=== PATIENT | male | born 1945 | race Caucasian/White ===

== ENCOUNTER 2018-08-27 06:02 | Day surgery (SDC) | payer MEDICARE ==
[~2018-08-27] VITALS: Ht 175.3 cm; Wt 89.0 kg
[~2018-08-27 06:02] MED LIST: AMLO5 PO; ASPI81CH PO; ATOR10 PO; BENA20 PO; BENHYD1012; CARV6.25 PO; CENTRUM SILVER1 EAC2 PO; CHOL10002; CLON.1 PO; Emla Cream30 GM TP; FINA5 PO; FOLBIC RF TABL1 EACH PO; FOLI1 PO; FURO20 PO; HYDR10 PO; Klor-Con M1010 MEQ PO; MAGOXI400 PO; NALT50 PO; NITR.4SL SL; OMEP20ER PO; Soliris300 MG/30 IV; TAMS.4ER PO; THIA100 PO
--- NOTE | 2018-08-27 10:05 | NUR ---
PT RETURNED TO RECOVERY ROOM ON BED. LEFT GROIN SITE SOFT NON-TENDER WITH NO HEMATOMA AND NO PULSATILE BLEEDING. DRESSING INTACT; TRACK OOZING NOTED. PT DENIES CP; PT DENIES SHARP BACK PAIN; PT C/O CHRONIC LOWER BACK SORENESS. CALL LIGHT IN REACH.
[2018-08-27] MEDS ORDERED: CLOP75 PO (10:37)
--- NOTE | 2018-08-27 13:00 | NUR ---
10 CC REMOVED FROM SMALLS CATHETER BALLOON. SMALLS CATHETER REMOVED; PT TOLERATED WELL.
--- NOTE | 2018-08-27 13:30 | NUR ---
DISCHARGE INSTRUCTIONS REVIEWED ALL QUESTIONS ANSWERED. LEFT GROIN SITE STILL SOFT NON-TENDER WITH NO HEMATOMA AND NO PULSATILE BLEEDING. INTACT DRESSING.
--- NOTE | 2018-08-27 13:43 | NUR ---
PT AMBULATED TO BR TO VOID. NO CHANGES TO LEFT GROIN SITE.
--- NOTE | 2018-08-27 14:01 | NUR ---
20 IV DISCONTINUED FROM LEFT AC WITH INTACT CANNULA. PT ESCORTED OUT VIA WHEELCHAIR ESCORT.
== END 2018-08-27 14:00 | disposition home or self-care (01) ==
LOC: MHTC 06:02
DX: I70.211 Atherosclerosis of native arteries of extremities with intermittent claudication, right leg (principal); G62.9 Polyneuropathy, unspecified; E78.5 Hyperlipidemia, unspecified; I10 Essential (primary) hypertension; Z86.718 Personal history of other venous thrombosis and embolism; Z87.891 Personal history of nicotine dependence; Z82.49 Family history of ischemic heart disease and other diseases of the circulatory system; Z79.82 Long term (current) use of aspirin; Z79.899 Other long term (current) drug therapy
CPT/HCPCS: 37225; 37228; 75625; 75716; 75774; 85347; 99152; 99153; C1714; C1725; C1760; C1769; C1884; C1887; C1894; C2623; J1644; J2250; J3010; J7030; Q9967

== ENCOUNTER → 2018-08-31 | Outpatient (CLI) | payer MEDICARE ==
[~2018-08-31] MED LIST changes: +CLOP75 PO
== END | disposition home or self-care (01) ==
LOC: LAB EV 10:07 → LAB SHORT 10:07
DX: N39.0 Urinary tract infection, site not specified (principal)
CPT/HCPCS: 87077; 87086; 87186

== ENCOUNTER → 2018-12-02 | Outpatient (CLI) | payer MEDICARE | END | disposition home or self-care (01) | LOC: PLD 09:55 → LAB SHORT 09:55 | DX: L57.0 Actinic keratosis (principal) | CPT/HCPCS: 88305 ==

== ENCOUNTER 2019-03-02 20:09 | Emergency (ER) | payer MEDICARE ==
[~2019-03-02] VITALS: Ht 185.4 cm; Wt 108.9 kg
[2019-03-02 20:40] LABS: BASOPHILS ABSOLUTE AUTO 0.02 K/mm3 (0.00-0.23); BASOPHILS PERCENT AUTO 1 % (0-2); EOSINOPHILS ABSOLUTE AUTO 0.11 K/mm3 (0.00-0.68); EOSINOPHILS PERCENT AUTO 3 % (0-6); Hematocrit 34.9 % (37.0-53.0); Hemoglobin 11.5 g/dL (13.5-17.5); IMMATURE GRAN ABSOLUTE AUTO 0.02 K/mm3 (0.00-0.10); IMMATURE GRAN PERCENT AUTO 1 % (0-1); LYMPHOCYTES ABSOLUTE AUTO 0.82 K/mm3 (0.84-5.20); LYMPHOCYTES PERCENT AUTO 22 % (21-46); MONOCYTES ABSOLUTE AUTO 0.31 K/mm3 (0.16-1.47); MONOCYTES PERCENT AUTO 8 % (4-13); Mean Corpuscular HGB 31.7 pg (26.0-34.0); Mean Corpuscular Volume 96 fL (80-100); Mean Platelet Volume 9.5 fL (9.1-12.4); NEUTROPHILS ABSOLUTE AUTO 2.52 K/mm3 (1.96-9.15); NEUTROPHILS PERCENT AUTO 66 % (41-73); Platelet Count 84 K/mm3 (150-400); RDW Coefficient Variation 12.8 % (11.7-14.2); RDW Standard Deviation 45.3 fL (35.1-46.3); Red Blood Cell Count 3.63 M/mm3 (4.30-5.90)
[2019-03-02 20:58] LABS: Alanine Aminotransfer (ALT/SGP 25 U/L (12-78); Albumin, Blood 4.1 g/dL (3.4-5.0); Albumin/Globulin Ratio 1.4 (0.8-1.8); Alk Phos 70 U/L (50-136); Anion Gap 6 mmol/L (6-16); Aspartate Aminotrans (AST/SGOT 13 U/L (12-37); Bilirubin, Total 0.5 mg/dL (0.1-1.0); Blood Urea Nitrogen 35 mg/dL (8-24); Bun/Creatinine Ratio 27.6 (12.0-20.0); CO2, Blood 23 mmol/L (21-32); Calcium, Blood 8.5 mg/dL (8.5-10.1); Chloride, Blood 117 mmol/L (98-108); Creatinine, Blood 1.27 mg/dL (0.60-1.20); Globulin, Blood 2.9 g/dL (2.2-4.0); Glomerular Filtration Rate 59 (60-); Glucose, Blood 101 mg/dL (70-99); Potassium, Blood 4.8 mmol/L (3.5-5.5); Sodium, Blood 146 mmol/L (136-145); Troponin I <0.015 ng/mL (0.000-0.040)
[2019-04-22] MEDS ORDERED: BACL10 (14:13)
== END 2019-03-03 00:56 | disposition home or self-care (01) ==
LOC: ER 20:09
PROVIDERS: Emergency Medicine
DX: R07.89 Other chest pain (principal); I10 Essential (primary) hypertension; I73.9 Peripheral vascular disease, unspecified; G62.9 Polyneuropathy, unspecified; Z87.891 Personal history of nicotine dependence; Z88.0 Allergy status to penicillin; Z88.8 Allergy status to other drugs, medicaments and biological substances; Z79.82 Long term (current) use of aspirin; Z79.02 Long term (current) use of antithrombotics/antiplatelets; Z79.899 Other long term (current) drug therapy
CPT/HCPCS: 36415; 71046; 80053; 83690; 84484; 85025; 93005; 93010; 96374; 99285-25

== ENCOUNTER 2019-04-23 07:04 | Day surgery (SDC) | payer MEDICARE ==
[~2019-04-23] VITALS: Ht 177.8 cm; Wt 89.0 kg
[~2019-04-23 07:04] MED LIST changes: +BACL10
--- NOTE | 2019-04-23 11:54 | NUR ---
TR BAND DEFLATED 7 CC AIR OUT, REMAINS ON WITH MINIMAL OOZING NOTED UNDERNEATH TR BAND. VSS. PT REPORTS 3/10 ACHEY PAIN TO RIGHT WRIST NEAR EDGE OF TR BAND. BRUSING REMAINS ON RFA, 15 MINUTES OF PREVIOUS ICE PLACED ON SITE ON RFA. WILL CONTINUE TO MONITOR. PT VERBALIZED UNDERSTANDING OF D/C INSTRUCTIONS. PAPERWORK SIGNED AND PLACED INTO [facility].
--- NOTE | 2019-04-23 14:24 | NUR ---
TR BAND REMOVED FROM RIGHT WRIST. BLAZE PAD AND CLEAR TEGADERM USED FOR MINIMAL OOZING FROM SITE. LIGHT PRESSURE DRESSING APPLIED TO RIGHT WRIST, ARM BOARD ON FOR SUPPORT. PT HAS AMBULATED TO RESTROOM WITH STEADY GAIT. GOT SELF DRESSED FROM THE WAIST UP. AWAITING ARRIVAL OF HIS FOR A RIDE HOME.
--- NOTE | 2019-04-23 14:45 | NUR ---
PT ARRIVES TO GIVE PT A RIDE HOME. IV REMOVED FROM RAC WITH CATH INTACT, PRESSURE DRESSING APPLIED. RIGHT WRIST REMAINS STABLE, ARM BOARD ON. PT ABLE TO AMBULATE OUT OF DEPARTMENT WITH STEADY GAIT. DENIES NEED FOR W/C OUT TO PRIVATE VEHICLE. NADN AT TIME OF DISPO.
== END 2019-04-23 14:45 | disposition home or self-care (01) ==
LOC: MHTC 07:04
PROC: B215YZZ Fluoroscopy of Left Heart using Other Contrast (ICD-10-PCS; principal; 2019-04-23)
PROC: B211YZZ Fluoroscopy of Multiple Coronary Arteries using Other Contrast (ICD-10-PCS; principal; 2019-04-23)
PROC: 4A023N7 Measurement of Cardiac Sampling and Pressure, Left Heart, Percutaneous Approach (ICD-10-PCS; principal; 2019-04-23)
DX: T82.855A Stenosis of coronary artery stent, initial encounter (principal); I25.10 Atherosclerotic heart disease of native coronary artery without angina pectoris; E78.00 Pure hypercholesterolemia, unspecified; I10 Essential (primary) hypertension; K21.9 Gastro-esophageal reflux disease without esophagitis; E78.5 Hyperlipidemia, unspecified; D59.3 Hemolytic-uremic syndrome; Y83.1 Surgical operation with implant of artificial internal device as the cause of abnormal reaction of the patient, or of later complication, without mention of misadventure at the time of the procedure; Z82.49 Family history of ischemic heart disease and other diseases of the circulatory system; Z88.0 Allergy status to penicillin; Z88.8 Allergy status to other drugs, medicaments and biological substances; Z79.899 Other long term (current) drug therapy; Z79.82 Long term (current) use of aspirin; Z79.02 Long term (current) use of antithrombotics/antiplatelets; Z87.891 Personal history of nicotine dependence; Z98.890 Other specified postprocedural states; Z86.79 Personal history of other diseases of the circulatory system
CPT/HCPCS: 76937; 85347; 93005; 93010; 93458; 99152; 99153; C1769; C1894; J1644; J2250; J3010; J7030; Q9967

== ENCOUNTER → 2020-12-07 | Outpatient (CLI) | payer MEDICARE | END | disposition home or self-care (01) | LOC: LAB 10:54 → LAB SHORT 10:54 | DX: D48.5 Neoplasm of uncertain behavior of skin (principal) | CPT/HCPCS: 88305 ==

== ENCOUNTER 2021-07-29 11:31 | Day surgery (SDC) | payer MEDICARE ==
[2021-07-29 10:46] LABS: BASOPHILS ABSOLUTE AUTO 0.02 K/mm3 (0.00-0.23); BASOPHILS PERCENT AUTO 1 % (0-2); EOSINOPHILS ABSOLUTE AUTO 0.04 K/mm3 (0.00-0.68); EOSINOPHILS PERCENT AUTO 1 % (0-6); Hematocrit 19.9 % (37.0-53.0); IMMATURE GRAN ABSOLUTE AUTO 0.03 K/mm3 (0.00-0.10); IMMATURE GRAN PERCENT AUTO 1 % (0-1); LYMPHOCYTES ABSOLUTE AUTO 0.56 K/mm3 (0.84-5.20); LYMPHOCYTES PERCENT AUTO 18 % (21-46); MONOCYTES ABSOLUTE AUTO 0.28 K/mm3 (0.16-1.47); MONOCYTES PERCENT AUTO 9 % (4-13); Mean Corpuscular HGB 25.1 pg (26.0-34.0); Mean Corpuscular HGB Conc 28.1 g/dL (31.5-36.5); Mean Corpuscular Volume 89 fL (80-100); Mean Platelet Volume 9.7 fL (9.1-12.4); NEUTROPHILS ABSOLUTE AUTO 2.14 K/mm3 (1.96-9.15); NEUTROPHILS PERCENT AUTO 70 % (41-73); Platelet Count 102 K/mm3 (150-400); RDW Coefficient Variation 14.6 % (11.7-14.2); RDW Standard Deviation 46.3 fL (35.1-46.3); Red Blood Cell Count 2.23 M/mm3 (4.30-5.90); White Blood Cell Count 3.07 K/mm3 (4.00-11.30)
[2021-07-29 10:53] LABS: Hemoglobin 5.6 g/dL (13.5-17.5)
[2021-07-29 11:10] LABS: Bun/Creatinine Ratio 21.1 (12.0-20.0); Calcium, Blood 8.6 mg/dL (8.5-10.1); Creatinine, Blood 1.42 mg/dL (0.60-1.20); Percent Saturation 76.6 % (20.0-50.0); Potassium, Blood 4.5 mmol/L (3.5-5.5)
== END 2021-07-29 16:54 | disposition home or self-care (01) ==
LOC: ATC 11:31 → EDSTATUS 11:32 → ATC 16:54
PROVIDERS: Internal Medicine
DX: D62 Acute posthemorrhagic anemia (principal); D50.9 Iron deficiency anemia, unspecified; K31.819 Angiodysplasia of stomach and duodenum without bleeding; I12.9 Hypertensive chronic kidney disease with stage 1 through stage 4 chronic kidney disease, or unspecified chronic kidney disease; N18.9 Chronic kidney disease, unspecified; I25.10 Atherosclerotic heart disease of native coronary artery without angina pectoris; Z87.891 Personal history of nicotine dependence; Z88.0 Allergy status to penicillin
CPT/HCPCS: 36415; 80048; 82728; 83010; 83540; 83550; 85025; 86850; 86900; 86901; 86923; J1642; J7050; P9016

== ENCOUNTER → 2021-07-31 | Outpatient (CLI) | payer MEDICARE ==
[2021-08-01 13:09] LABS: Stool Occult Blood Guaiac 1 Pos (Neg); Stool Occult Blood Guaiac 2 Pos (Neg)
== END | disposition home or self-care (01) ==
LOC: LAB SHORT 08:40
PROVIDERS: Internal Medicine
DX: D62 Acute posthemorrhagic anemia (principal)
CPT/HCPCS: 82272

== ENCOUNTER → 2021-12-15 | Outpatient (CLI) | payer MEDICARE | END | disposition home or self-care (01) | LOC: LAB SHORT 11:41 | DX: L82.1 Other seborrheic keratosis (principal) | CPT/HCPCS: 88305 ==

== ENCOUNTER 2022-09-21 08:57 | Emergency (ER) | payer MEDICARE ==
[~2022-09-21] VITALS: Ht 177.8 cm; Wt 86.2 kg
== END 2022-09-21 12:48 | disposition home or self-care (01) ==
LOC: ER 08:57
DX: I70.298 Other atherosclerosis of native arteries of extremities, other extremity (principal); R20.2 Paresthesia of skin; M25.512 Pain in left shoulder; R07.89 Other chest pain; I10 Essential (primary) hypertension; G62.9 Polyneuropathy, unspecified; I49.3 Ventricular premature depolarization; Z88.8 Allergy status to other drugs, medicaments and biological substances; Z79.82 Long term (current) use of aspirin; Z79.899 Other long term (current) drug therapy; Z79.02 Long term (current) use of antithrombotics/antiplatelets; Z87.891 Personal history of nicotine dependence; Z88.0 Allergy status to penicillin; I70.8 Atherosclerosis of other arteries
CPT/HCPCS: 71275; 74175; 93005; 93010; 99284-25; J7030; Q9967

== ENCOUNTER 2022-11-10 03:22 | Day surgery (SDC) | payer MEDICARE ==
[2022-11-08 08:02] LABS: BASOPHILS ABSOLUTE AUTO 0.03 K/mm3 (0.00-0.23); BASOPHILS PERCENT AUTO 1 % (0-2); EOSINOPHILS ABSOLUTE AUTO 0.07 K/mm3 (0.00-0.68); EOSINOPHILS PERCENT AUTO 2 % (0-6); Hematocrit 23.7 % (37.0-53.0); Hemoglobin 7.3 g/dL (13.5-17.5); IMMATURE GRAN ABSOLUTE AUTO 0.03 K/mm3 (0.00-0.10); IMMATURE GRAN PERCENT AUTO 1 % (0-1); LYMPHOCYTES PERCENT AUTO 13 % (21-46); MONOCYTES ABSOLUTE AUTO 0.28 K/mm3 (0.16-1.47); MONOCYTES PERCENT AUTO 7 % (4-13); Mean Corpuscular HGB 30.9 pg (26.0-34.0); Mean Corpuscular HGB Conc 30.8 g/dL (31.5-36.5); Mean Corpuscular Volume 100 fL (80-100); Mean Platelet Volume 9.3 fL (9.1-12.4); NEUTROPHILS ABSOLUTE AUTO 3.03 K/mm3 (1.96-9.15); NEUTROPHILS PERCENT AUTO 77 % (41-73); Platelet Count 114 K/mm3 (150-400); RDW Coefficient Variation 17.3 % (11.7-14.2); RDW Standard Deviation 62.6 fL (35.1-46.3); Red Blood Cell Count 2.36 M/mm3 (4.30-5.90); White Blood Cell Count 3.94 K/mm3 (4.00-11.30)
[2022-11-08 08:40] LABS: Albumin, Blood 3.5 g/dL (3.4-5.0); Albumin/Globulin Ratio 1.3 (0.8-1.8); Bilirubin, Total 0.7 mg/dL (0.1-1.0); Calcium, Blood 8.7 mg/dL (8.5-10.1); Creatinine, Blood 1.5 mg/dL (0.60-1.20); Globulin, Blood 2.7 g/dL (2.2-4.0); Potassium, Blood 4.9 mmol/L (3.5-5.5); Total Protein, Blood 6.2 g/dL (6.4-8.2)
[2022-11-08 10:58] LABS: Percent Saturation 10.6 % (20.0-50.0)
[~2022-11-10 03:22] MED LIST changes: -BENA20 PO; -CHOL10002; +LOTENSIN HCT 21 EAC3 PO; +THERA-D2000 UNIT PO
[2022-11-10 07:53] VITALS: BP 111/44
[2022-11-10 08:09] VITALS: BP 105/40
[2022-11-10 09:10] VITALS: BP 142/55
== END 2022-11-10 09:40 | disposition home or self-care (01) ==
LOC: ATC 03:22 → EDSTATUS 07:30 → ATC 07:30
PROVIDERS: Internal Medicine Hematology & Oncology; Registered Nurse Oncology
DX: D58.9 Hereditary hemolytic anemia, unspecified (principal); K74.60 Unspecified cirrhosis of liver
CPT/HCPCS: 36415; 36430; 80053; 82728; 82977; 83010; 83540; 83550; 83615; 85025; 86850; 86900; 86901; 86923; J1642; J7050; P9016

== ENCOUNTER 2022-11-12 08:39 | Observation (INO) | payer MEDICARE ==
[2022-11-12] VITALS (7 sets, daily range): BP systolic 120–178; BP diastolic 58–74
[~2022-11-12] VITALS: Ht 177.8 cm; Wt 87.6 kg
[2022-11-12 09:57] LABS: BASOPHILS ABSOLUTE AUTO 0.02 K/mm3 (0.00-0.23); BASOPHILS PERCENT AUTO 1 % (0-2); EOSINOPHILS ABSOLUTE AUTO 0.06 K/mm3 (0.00-0.68); EOSINOPHILS PERCENT AUTO 2 % (0-6); Hematocrit 22.8 % (37.0-53.0); Hemoglobin 7.2 g/dL (13.5-17.5); IMMATURE GRAN ABSOLUTE AUTO 0.01 K/mm3 (0.00-0.10); IMMATURE GRAN PERCENT AUTO 0 % (0-1); LYMPHOCYTES ABSOLUTE AUTO 0.57 K/mm3 (0.84-5.20); LYMPHOCYTES PERCENT AUTO 19 % (21-46); MONOCYTES ABSOLUTE AUTO 0.33 K/mm3 (0.16-1.47); MONOCYTES PERCENT AUTO 11 % (4-13); Mean Corpuscular HGB 31.2 pg (26.0-34.0); Mean Corpuscular HGB Conc 31.6 g/dL (31.5-36.5); Mean Corpuscular Volume 99 fL (80-100); Mean Platelet Volume 9.8 fL (9.1-12.4); NEUTROPHILS ABSOLUTE AUTO 2.07 K/mm3 (1.96-9.15); NEUTROPHILS PERCENT AUTO 68 % (41-73); Platelet Count 93 K/mm3 (150-400); RDW Standard Deviation 58.2 fL (35.1-46.3); Red Blood Cell Count 2.31 M/mm3 (4.30-5.90); White Blood Cell Count 3.06 K/mm3 (4.00-11.30)
[2022-11-12] MEDS ORDERED: B-121000 MC3 PO (09:58)
[2022-11-12] MEDS ORDERED: ISOSORBIDE MONO60 MG PO (10:04)
[2022-11-12] MEDS ORDERED: PANT40 PO (10:05)
[2022-11-12] MEDS ORDERED: RANO500T PO (10:05)
[2022-11-12 10:17] LABS: Albumin, Blood 3.1 g/dL (3.4-5.0); Albumin/Globulin Ratio 1.3 (0.8-1.8); Bilirubin, Total 0.7 mg/dL (0.1-1.0); Bun/Creatinine Ratio 30.9 (12.0-20.0); Calcium, Blood 8.2 mg/dL (8.5-10.1); Creatinine, Blood 1.39 mg/dL (0.60-1.20); Globulin, Blood 2.3 g/dL (2.2-4.0); Potassium, Blood 4.9 mmol/L (3.5-5.5); Total Protein, Blood 5.4 g/dL (6.4-8.2)
[2022-11-12 10:28] LABS: International Normalized Ratio 1.1; Prothrombin Time Results 11.5 Sec (9.7-11.5)
[2022-11-12] MEDS ORDERED: [UNRECOGNIZED DRUG - OTHER] IV (16:22)
--- NOTE | 2022-11-12 18:50 | NUR ---
ADMIT NOTE Received report from ED, pt to room via andre bansal transfered to bed. Pt oriented to room and call light. Pt alert, oriented x4; calm and cooperative with care. Pt up in lynnandre in room. Pt denies pain, chest pain/pressure, sob, nausea, and dizziness. Pt reports baseline numbness to ble. Pt reports having 7-10 days of black tarry stool, abd firms and distended, nontender, + BT x4 quad. Dr Robbins at bedside this evening, new order for clear liquid diet, then NPO tomorrow for EGD in the afternoon/evening. Spo2 >90% on ra, breathing even and unlabored, ls clear. Tele sinus, bp elevated but stable. Clarified orders for [address]BC [address] Dr Tinajero, orders to give now. Pt receiving blood at this time, appears to be tolerating at this time. Vss. Will continue to monitor. Discussed code status and POLST with patient and spouse in depth. Pt has poslt in charge expressing DNR and full treatment, pt requesting FULL CODE and FULL treatment. Assisted patient and spouse with completing new POLST, will have DR foley tomorrow.
[2022-11-12 22:37] LABS: Hematocrit 26.6 % (37.0-53.0); Hemoglobin 8.5 g/dL (13.5-17.5)
[2022-11-13] VITALS (18 sets, daily range): BP systolic 85–186; BP diastolic 53–87
[2022-11-13 04:34] LABS: Hematocrit 25.5 % (37.0-53.0); Hemoglobin 8.1 g/dL (13.5-17.5)
[2022-11-13 04:53] LABS: Bun/Creatinine Ratio 22.6 (12.0-20.0); Creatinine, Blood 1.24 mg/dL (0.60-1.20); Magnesium, Blood 2.4 mg/dL (1.6-2.4); Potassium, Blood 4.6 mmol/L (3.5-5.5)
--- NOTE | 2022-11-13 09:11 | NUR ---
AM NOTE PT IS ALERT AND ORIENTATED TO PERSON, PLACE, TIME, AND SITUATION. DENIES CHEST PAIN, SHORTNESS OF BREATH, DIZZINESS, NAUSEA, OR ABDOMINAL PAIN. PT MEDICATED PER EMAR. DISCUSSED EGD LATER THIS AFTERNOON. PT DENIES HAVING ANY BOWEL MOVEMENTS THIS ADMISSION. PT HAS NO FURTHER QUESTIONS AT THIS TIME, DENIES ANY NEEDS, WILL CONTINUE TO MONITOR AND ASSESS PT.
[2022-11-13 10:50] LABS: Hematocrit 25.7 % (37.0-53.0); Hemoglobin 8.2 g/dL (13.5-17.5)
--- NOTE | 2022-11-13 15:01 | NUR ---
LEFT THE UNIT TO ENDO, 1450.
--- NOTE | 2022-11-13 15:01 | NUR ---
MEDIPORT TO RIGHT CHEST WALL ACCESSED AND PIV #20 TO RIGHT AC. LEFT AC IV NOT PATENT AND DISCONTINUED.
--- NOTE | 2022-11-13 15:04 | NUR ---
INTO SDS FOR EGD. NPO STATUS CONFIRMED. HISTORY REVIEWED. LUNGS CLEAR. PT SPOUSE AT BEDSIDE. DNR REVOKED FOR PROCEDURE.
--- NOTE | 2022-11-13 17:49 | NUR ---
D/C NOTE PT ATE SNACK AND DINNER WITHOUT COMPLICATIONS. PT REMOVED FROM TELEMTRY, PIV REMOVED, AND MEDIPORT DEACCESSED WITH HEPARIN, PER EMAR. VITAL SIGNS ARE STABLE. PT AND FAMILY EDUCATED ABOUT FOLLOW-UP REFERALS, UPPER GI BLEEDS, EMERGENT INSTANCES THAT WOULD REQUIRE RETURNING TO THE EMERGENCY DEPARTMENT. PT AND FAMILY HAD NO FURTHER QUESTIONS OR CONCERNS. PT TRANSPORTED TO [facility] VIA WHEELCAHIR.
--- NOTE | 2022-11-13 18:03 | NUR ---
I have reviewed the nursing students documentation and am in agreement.
--- NOTE | 2022-11-14 06:51 | NUR ---
11/14/22 0651 Ramirez Zheng HISTORY, CHART, MEDICATIONS AND ALLERGIES REVIEWED BEFORE START OF PROCEDURE. PATIENT CONFIRMS NPO STATUS AND AGREES WITH SCHEDULED PROCEDURE. 3-LEAD EKG REVIEWED WITH PHYSICIAN PRIOR TO START OF PROCEDURE. MONITOR INTACT WITH CONTINUOUS PULSE OXIMETRY,CAPNOGRAPHY, 3-LEAD EKG, INTERMITTENT BP. SUPPLEMENTAL O2 TO BE TITRATED THROUGHOUT PROCEDURE TO MAINTAIN O2 SATURATION ABOVE 90%. PATIENT DETERMINED TO BE ASA APPROPRIATE FOR PROPOFOL SEDATION PRIOR TO START OF PROCEDURE BY DR. PLATT.
[2022-11-22] MEDS ORDERED: BENAZEPRIL HCL40 M1 PO (13:40)
[2022-11-22] MEDS ORDERED: CLOP75 PO (13:44)
[2022-11-22] MEDS ORDERED: OMEP20ER PO (13:45)
[2022-11-22] MEDS ORDERED: RANO500T PO (14:04)
== END 2022-11-13 17:50 | disposition home or self-care (01) ==
LOC: ER 08:39 → PCU 08:40
PROVIDERS: Student in an Organized Health Care Education/Training Program; ADMIT Internal Medicine
DX: K31.819 Angiodysplasia of stomach and duodenum without bleeding (principal); K92.1 Melena; K20.90 Esophagitis, unspecified without bleeding; K70.30 Alcoholic cirrhosis of liver without ascites; D62 Acute posthemorrhagic anemia; D59.39 Other hemolytic-uremic syndrome; I10 Essential (primary) hypertension; I25.10 Atherosclerotic heart disease of native coronary artery without angina pectoris; E78.5 Hyperlipidemia, unspecified; Z87.891 Personal history of nicotine dependence; Z95.5 Presence of coronary angioplasty implant and graft; Z88.0 Allergy status to penicillin; Z88.8 Allergy status to other drugs, medicaments and biological substances; Z79.82 Long term (current) use of aspirin; Z79.899 Other long term (current) drug therapy
CPT/HCPCS: 36430; 80048; 80053; 82272; 83735; 85014; 85018; 85025; 85610; 85730; 86850; 86900; 86901; 86923; 88305; 96365; 96375; 96376; 99285-25; A9270; C9113; G0378; J0696; J1642; J2354; J2405; J2704; J7030; J7050; J7120; P9016

== ENCOUNTER 2022-12-06 08:40 | Day surgery (SDC) | payer MEDICARE ==
[~2022-12-06] VITALS: Ht 175.3 cm; Wt 83.4 kg
[2022-12-06] VITALS (17 sets, daily range): BP systolic 121–169; BP diastolic 56–78
[~2022-12-06 08:40] MED LIST changes: +B-121000 MC3 PO; +BENAZEPRIL HCL40 M1 PO; +ISOSORBIDE MONO60 MG PO; +PANT40 PO; +RANO500T PO; +[UNRECOGNIZED DRUG - OTHER] IV
--- NOTE | 2022-12-06 10:39 | NUR ---
0920 TO STEP, CONFIRMED SURGERY AND SURGEON. PRE OP TEACHING DONE, AT BEDSIDE MEDS AND ALLERGIES EVIEWED
--- NOTE | 2022-12-06 10:49 | NUR ---
NASAL SWABS X 3 GIVEN TO PATIENT
--- NOTE | 2022-12-06 12:38 | NUR ---
12/06/22 Kevin8 Violetta Kaur PATIENT ARRIVED TO OR WITH A MEDIPORT IN PLACE IN TACT IN THE RIGHT CHEST. MEDIPORT NOT ACCESSED FOR CASE.
--- NOTE | 2022-12-06 15:00 | NUR ---
ARRIVAL PATIENT ARRIVED TO ROOM 214 VIA BED. VSS ON RA, LUNGS COARSE T/O. BULKY DRESSINGS TO RIGHT HIP, C/D/I. POLAR PACK IN PLACE. TITUS HOSE & SCD'S IN PLACE. PATIENT HAS FULL SENSATION TO BLE, WIGGLES ALL TOES APPROPRIATELY, STRONG PEDAL PULSES TO BOTH FEET. ORIENTED TO ROOM & CALL LIGHT, IN REACH.
--- NOTE | 2022-12-06 19:33 | NUR ---
SHIFT SUMMARY NO ACUTE CHANGES SINCE ARRIVAL TO UNIT. POD O R LIDA. DRESSING TO RIGHT HIP C/D/I, POLAR PACK IN PLACE. PAIN MANAGED WELL PER EMAR. PATIENT UP TO BATHROOM & CHAIR. EATING & DRINKING WELL. HAS NOT VOIDED POST-OP, BLADDER SCAN AT APPROX 1845 SHOWED ABOUT 92 ML. CALL LIGHT IN REACH, REPORT GIVEN TO NOC RN'S LESLIE.
[2022-12-07 04:04] VITALS: BP 173/54
--- NOTE | 2022-12-07 05:09 | NUR ---
MEDS PT REQUESTED HOME MEDICATIONS PER HIS HOME ROUTINE FOR BPH AND BP. PT MEDICATED PER REQUEST.
[2022-12-07 05:14] LABS: BASOPHILS PERCENT AUTO 0 % (0-2); EOSINOPHILS PERCENT AUTO 0 % (0-6); Hematocrit 26.5 % (37.0-53.0); Hemoglobin 8.8 g/dL (13.5-17.5); IMMATURE GRAN ABSOLUTE AUTO 0.02 K/mm3 (0.00-0.10); IMMATURE GRAN PERCENT AUTO 0 % (0-1); LYMPHOCYTES PERCENT AUTO 6 % (21-46); MONOCYTES ABSOLUTE AUTO 0.23 K/mm3 (0.16-1.47); MONOCYTES PERCENT AUTO 5 % (4-13); Mean Corpuscular HGB 30.9 pg (26.0-34.0); Mean Corpuscular HGB Conc 33.2 g/dL (31.5-36.5); Mean Corpuscular Volume 93 fL (80-100); NEUTROPHILS ABSOLUTE AUTO 4.58 K/mm3 (1.96-9.15); NEUTROPHILS PERCENT AUTO 89 % (41-73); Platelet Count 79 K/mm3 (150-400); RDW Coefficient Variation 15.1 % (11.7-14.2); RDW Standard Deviation 51.8 fL (35.1-46.3); Red Blood Cell Count 2.85 M/mm3 (4.30-5.90); White Blood Cell Count 5.13 K/mm3 (4.00-11.30)
--- NOTE | 2022-12-07 05:19 | NUR ---
SHIFT SUMMARY: POD1 R TOTAL HIP, NO POST SURGERY VOID. AMB TO BATHROOM X2, UNSUCCESSFUL. BLADDER SCANS COMPLETED AND DOCUMENTED. PT DECLINES STRAIGHT CATH AND REQUESTS TO WAIT. LUNGS CONTINUE TO BE COARSE T/O ON ASSESSMENT. PT UP TO CHAIR TILL MIDNIGHT. CONTINUED IV FLUIDS AT 100ML/HR FOR HYDRATION AND URINATION. BP ELEVATED 173/54 THIS A.M. MEDICATED BY LI FRANCIS W/ AM MEDS. PAIN HAS BEEN MINIMAL/ TOLERABLE AND MEDICATED THIS A.M. PT DENIES N/T, N/V, SOB. CALL LIGHT W/IN REACH. PT PLANS FOR DC HOME TODAY.
[2022-12-07 05:37] LABS: Bun/Creatinine Ratio 21.9 (12.0-20.0); Calcium, Blood 7.9 mg/dL (8.5-10.1); Creatinine, Blood 1.51 mg/dL (0.60-1.20); Magnesium, Blood 1.7 mg/dL (1.6-2.4); Potassium, Blood 4.6 mmol/L (3.5-5.5)
[2022-12-07 06:05] VITALS: BP 190/63
--- NOTE | 2022-12-07 06:34 | NUR ---
BLADDER SCAN PT CONTINUES TO BE UNABLE TO VOID. BLADDER SCANS COMPLETED W/ MOST RECENT 578ML. PT CONTINUES TO DECLINE STRAIGHT CATH HE REPORTS "THE URGE IS RIGHT THERE" WILL REPORT OFF TO DAY RN.
[2022-12-07 08:03] VITALS: BP 145/46
[2022-12-07 08:04] VITALS: BP 154/49
[2022-12-07] MEDS ORDERED: OXAYDO5 M3 PO (09:03)
[2022-12-07] MEDS ORDERED: SULTRIDS PO (09:03)
[2022-12-07] MEDS ORDERED: PROM25 PO (09:03)
--- NOTE | 2022-12-07 13:30 | NUR ---
DISCHARGE PATIENT CLEARED THERAPY WELL. EATING & DRINKING W/O N/V. VOIDING SMALL, FREQUENT AMOUNTS, PATIENT REPORTS THAT IS BASELINE FOR HIM. POST-VOID BLADDER SCAN <300, SEE BLADDER MANAGEMENT. PAIN MANAGED WELL PER EMAR. AMBULATING WELL W/ 1P ASSIST W/ FWW & GB. DISCUSSED DICHARGE INSTRUCTIONS, ESCORTED OUT VIA W/C.
== END 2022-12-07 13:27 | disposition home or self-care (01) ==
LOC: ORSCMMR 08:40 → ORD 10:45 → SURS 14:54 → ORSCMMR 12-07 13:27 → SURS 12-07 13:27
PROVIDERS: Orthopaedic Surgery
PROC: 0SR90JA Replacement of Right Hip Joint with Synthetic Substitute, Uncemented, Open Approach (ICD-10-PCS; principal; 2022-12-06 10:45)
DX: M16.11 Unilateral primary osteoarthritis, right hip (principal); I10 Essential (primary) hypertension; E78.00 Pure hypercholesterolemia, unspecified; K74.60 Unspecified cirrhosis of liver; Z87.891 Personal history of nicotine dependence
CPT/HCPCS: 36415; 72170; 80048; 83735; 85025; 86850; 86900; 86901; 94760; 97110; 97116; 97161; 97165; 97530; 97535; A9270; C1713; C1776; J0171; J0690; J0735; J1100; J1885; J2250; J2405; J2704; J2795; J3010; J3370; J7120

== ENCOUNTER → 2022-12-15 | Outpatient (CLI) | payer MEDICARE ==
[~2022-12-15] MED LIST changes: +OXAYDO5 M3 PO; +PROM25 PO; +SULTRIDS PO
[2022-12-16 08:44] LABS: Adenovirus F 40/41 Not Detected (NOT DETECT); Astrovirus Not Detected (NOT DETECT); Campylobacter Sp Not Detected (NOT DETECT); Cryptosporidium Not Detected (NOT DETECT); Cyclospora Cayetanensis Not Detected (NOT DETECT); E. Coli O157 Not Detected (NOT DETECT); Entamoeba Histolytica Not Detected (NOT DETECT); Enteroaggregative E. coli-EAEC Not Detected (NOT DETECT); Enteropathogenic E. coli-EPEC Not Detected (NOT DETECT); Enterotoxigenic E. coli-ETEC Not Detected (NOT DETECT); Giardia Lamblia Not Detected (NOT DETECT); Norovirus GI/GII Not Detected (NOT DETECT); Plesiomonas Shigelloides Not Detected (NOT DETECT); Rotavirus A Not Detected (NOT DETECT); Salmonella Sp Not Detected (NOT DETECT); Shiga Toxin-prod E. coli-STEC Not Detected (NOT DETECT); Shigella/Enteroin E. coli-EIEC Not Detected (NOT DETECT); Vibrio Cholerae Not Detected (NOT DETECT); Vibrio Sp Not Detected (NOT DETECT); Yersinia Enterocolitica Not Detected (NOT DETECT)
[2022-12-16 08:45] LABS: Sapovirus Not Detected (NOT DETECT)
== END | disposition home or self-care (01) ==
LOC: LAB SHORT 17:59 → LAB 17:59
PROVIDERS: Internal Medicine
DX: R19.7 Diarrhea, unspecified (principal)
CPT/HCPCS: 87507

== ENCOUNTER → 2023-02-14 | Outpatient (CLI) | payer MEDICARE ==
[~2023-02-14] MED LIST changes: +KLOR-CON 1010 ME1 PO; +MGO PO
[2023-02-14 11:43] LABS: Bun/Creatinine Ratio 23.7 (12.0-20.0); Calcium, Blood 8.9 mg/dL (8.5-10.1); Creatinine, Blood 1.69 mg/dL (0.60-1.20); Potassium, Blood 4.9 mmol/L (3.5-5.5)
== END | disposition home or self-care (01) ==
LOC: LAB SHORT 10:13 → LAB 10:13
PROVIDERS: Internal Medicine
DX: I10 Essential (primary) hypertension (principal); M79.89 Other specified soft tissue disorders
CPT/HCPCS: 36415; 80048

== ENCOUNTER 2023-02-15 17:57 | Emergency (ER) | payer MEDICARE ==
[~2023-02-15] VITALS: Ht 177.8 cm; Wt 81.7 kg
[~2023-02-15 17:57] MED LIST changes: -KLOR-CON 1010 ME1 PO; -MGO PO
[2023-02-15 18:46] LABS: BASOPHILS PERCENT AUTO 0 % (0-2); EOSINOPHILS ABSOLUTE AUTO 0.01 K/mm3 (0.00-0.68); EOSINOPHILS PERCENT AUTO 0 % (0-6); Hematocrit 29.6 % (37.0-53.0); Hemoglobin 9.9 g/dL (13.5-17.5); IMMATURE GRAN ABSOLUTE AUTO 0.02 K/mm3 (0.00-0.10); IMMATURE GRAN PERCENT AUTO 0 % (0-1); LYMPHOCYTES ABSOLUTE AUTO 0.24 K/mm3 (0.84-5.20); LYMPHOCYTES PERCENT AUTO 5 % (21-46); MONOCYTES PERCENT AUTO 9 % (4-13); Mean Corpuscular HGB 32.1 pg (26.0-34.0); Mean Corpuscular HGB Conc 33.4 g/dL (31.5-36.5); Mean Corpuscular Volume 96 fL (80-100); Mean Platelet Volume 9.4 fL (9.1-12.4); NEUTROPHILS ABSOLUTE AUTO 3.95 K/mm3 (1.96-9.15); NEUTROPHILS PERCENT AUTO 86 % (41-73); Platelet Count 76 K/mm3 (150-400); RDW Coefficient Variation 13.3 % (11.7-14.2); RDW Standard Deviation 47.2 fL (35.1-46.3); Red Blood Cell Count 3.08 M/mm3 (4.30-5.90); White Blood Cell Count 4.62 K/mm3 (4.00-11.30)
[2023-02-15 19:12] LABS: Albumin, Blood 3.6 g/dL (3.4-5.0); Albumin/Globulin Ratio 1.4 (0.8-1.8); Bilirubin, Total 4.1 mg/dL (0.1-1.0); Bun/Creatinine Ratio 22.7 (12.0-20.0); Creatinine, Blood 1.76 mg/dL (0.60-1.20); Globulin, Blood 2.6 g/dL (2.2-4.0); Potassium, Blood 4.4 mmol/L (3.5-5.5); Total Protein, Blood 6.2 g/dL (6.4-8.2)
[2023-02-15] MEDS ORDERED: CLOP75 PO (22:35)
[2023-02-15] MEDS ORDERED: MGO PO (22:38)
[2023-02-15] MEDS ORDERED: B-121000 MC3 PO (22:39)
[2023-02-15] MEDS ORDERED: FURO20 PO (22:40)
[2023-02-15] MEDS ORDERED: KLOR-CON 1010 ME1 PO (22:40)
[2023-02-15 22:46] LABS: Source, Urine Clean Catch
[2023-02-15 22:50] LABS: Blood, Urine Neg (Neg); Glucose Qualitative, Urine Neg (Neg); Ketones, Urine 2+ (Neg); Leukocyte Esterase, Urine 1+ (Neg); Nitrite, Urine Neg (Neg); Protein, Urine 2+ (Neg); Specific Gravity, Urine 1.015 (1.003-1.022); Urobilinogen, Urine 2+ (Normal)
[2023-02-15 22:51] LABS: Appearance, Urine Clear (Clear); Bilirubin, Urine 2+ (Neg); Color, Urine Amber (P-Yellow)
[2023-02-15 22:56] LABS: Bacteria Not Seen /hpf; Red Blood Cells, Urine Not Seen /hpf (0-2); Squamous Epithelial Cells Rare /hpf (Few); White Blood Cells, Urine 0-2 /hpf (0-5)
[2023-02-15 23:56] LABS: International Normalized Ratio 1.11; Prothrombin Time Results 11.6 Sec (9.7-11.5)
[2023-02-16 00:09] LABS: Albumin, Blood 3.2 g/dL (3.4-5.0); Albumin/Globulin Ratio 1.3 (0.8-1.8); Bilirubin, Direct 3.5 mg/dL (0.0-0.3); Bilirubin, Indirect 0.9 mg/dL (0.1-0.7); Bilirubin, Total 4.4 mg/dL (0.1-1.0); Globulin, Blood 2.5 g/dL (2.2-4.0); Total Protein, Blood 5.7 g/dL (6.4-8.2)
[2023-02-16 06:00] VITALS: BP 147/50
== END 2023-02-16 06:20 | disposition short-term general hospital (02) ==
LOC: ER 17:57
PROVIDERS: Physician Assistant; Student in an Organized Health Care Education/Training Program
DX: K83.09 Other cholangitis (principal); K80.00 Calculus of gallbladder with acute cholecystitis without obstruction; E80.6 Other disorders of bilirubin metabolism; R74.01 Elevation of levels of liver transaminase levels; R74.8 Abnormal levels of other serum enzymes; I10 Essential (primary) hypertension; I25.10 Atherosclerotic heart disease of native coronary artery without angina pectoris; Z88.0 Allergy status to penicillin; Z88.8 Allergy status to other drugs, medicaments and biological substances; Z79.82 Long term (current) use of aspirin; Z79.02 Long term (current) use of antithrombotics/antiplatelets; Z79.899 Other long term (current) drug therapy; Z87.891 Personal history of nicotine dependence
CPT/HCPCS: 71046; 74160; 76705; 80053; 80076; 81001; 85025; 85610; 93005; 93010; 96365; 96367; 99285-25; A9270; J0696; J7030; Q9967

== ENCOUNTER 2023-04-30 06:01 | Day surgery (SDC) | payer MEDICARE ==
[2023-04-30] VITALS (11 sets, daily range): BP systolic 95–154; BP diastolic 53–106
[~2023-04-30] VITALS: Ht 174 cm; Wt 80.6 kg
[~2023-04-30 06:01] MED LIST changes: +KLOR-CON 1010 ME1 PO; +MGO PO
--- NOTE | 2023-04-30 07:25 | NUR ---
Ambulatory in Day Surgery. History, Chart, Medications and Allergies reviewed before start of procedure. Patient confirms NPO status and agrees with scheduled surgery. Pre-Op teaching done. Pt verbalizes understanding. Patient reports completing Chlorhexadine shower X2 prior to admission to hospital. Patient States Post-Procedure ride home has been arranged.
--- NOTE | 2023-04-30 10:46 | NUR ---
Patient up to Ambulate independently. Gait steady. Discharge instructions reviewed with patient. Patient verbalizes understanding. Copy given to patient to take home, WELL . Patient States Post-Procedure ride home has been arranged. Discharged via wheelchair to private car for ride home. PT TOLERATING PO.REPORTS PAIN TOLERABLE. PT ABD SITES WNL. PT REPORTS READY TO GO HOME. PT GIVEN ICE PACK.
== END 2023-04-30 10:46 | disposition home or self-care (01) ==
LOC: ORSCMMR 06:01 → ORD 07:30 → ORSCMMR 07:30
PROVIDERS: Surgery
PROC: BF031ZZ Plain Radiography of Gallbladder and Bile Ducts using Low Osmolar Contrast (ICD-10-PCS; principal; 2023-04-30 07:30)
PROC: 0FT44ZZ Resection of Gallbladder, Percutaneous Endoscopic Approach (ICD-10-PCS; principal; 2023-04-30 07:30)
PROC: 0WQF0ZZ Repair Abdominal Wall, Open Approach (ICD-10-PCS; principal; 2023-04-30 07:30)
DX: K81.1 Chronic cholecystitis (principal); Z87.19 Personal history of other diseases of the digestive system; K74.60 Unspecified cirrhosis of liver; K42.9 Umbilical hernia without obstruction or gangrene; I10 Essential (primary) hypertension; I12.9 Hypertensive chronic kidney disease with stage 1 through stage 4 chronic kidney disease, or unspecified chronic kidney disease; N18.30 Chronic kidney disease, stage 3 unspecified; E78.00 Pure hypercholesterolemia, unspecified; Z79.899 Other long term (current) drug therapy; Z79.82 Long term (current) use of aspirin
CPT/HCPCS: 74300; 88304; A9270; C1729; J1100; J1885; J2250; J2405; J2704; J2710; J3010; J7120

== ENCOUNTER 2023-05-11 14:42 | Observation (INO) | payer MEDICARE ==
[~2023-05-11] VITALS: Ht 177.8 cm; Wt 81.8 kg
[2023-05-11 14:57] VITALS: BP 202/68
[2023-05-11 16:14] LABS: BASOPHILS ABSOLUTE AUTO 0.02 K/mm3 (0.00-0.23); BASOPHILS PERCENT AUTO 1 % (0-2); EOSINOPHILS ABSOLUTE AUTO 0.07 K/mm3 (0.00-0.68); EOSINOPHILS PERCENT AUTO 2 % (0-6); Hematocrit 28.3 % (37.0-53.0); Hemoglobin 9.5 g/dL (13.5-17.5); IMMATURE GRAN ABSOLUTE AUTO 0.04 K/mm3 (0.00-0.10); IMMATURE GRAN PERCENT AUTO 1 % (0-1); LYMPHOCYTES ABSOLUTE AUTO 0.72 K/mm3 (0.84-5.20); LYMPHOCYTES PERCENT AUTO 21 % (21-46); MONOCYTES ABSOLUTE AUTO 0.28 K/mm3 (0.16-1.47); MONOCYTES PERCENT AUTO 8 % (4-13); Mean Corpuscular HGB 32.6 pg (26.0-34.0); Mean Corpuscular HGB Conc 33.6 g/dL (31.5-36.5); Mean Corpuscular Volume 97 fL (80-100); Mean Platelet Volume 8.8 fL (9.1-12.4); NEUTROPHILS ABSOLUTE AUTO 2.39 K/mm3 (1.96-9.15); NEUTROPHILS PERCENT AUTO 68 % (41-73); Platelet Count 105 K/mm3 (150-400); RDW Coefficient Variation 12.6 % (11.7-14.2); RDW Standard Deviation 44.8 fL (35.1-46.3); Red Blood Cell Count 2.91 M/mm3 (4.30-5.90); White Blood Cell Count 3.52 K/mm3 (4.00-11.30)
[2023-05-11 16:32] LABS: Albumin, Blood 2.8 g/dL (3.4-5.0); Albumin/Globulin Ratio 0.9 (0.8-1.8); Bilirubin, Total 0.5 mg/dL (0.1-1.0); Bun/Creatinine Ratio 21.8 (12.0-20.0); Calcium, Blood 8.9 mg/dL (8.5-10.1); Creatinine, Blood 1.24 mg/dL (0.60-1.20); Potassium, Blood 4.2 mmol/L (3.5-5.5); Total Protein, Blood 5.8 g/dL (6.4-8.2)
--- NOTE | 2023-05-11 16:36 | NUR ---
Requested to assist with identification of pt port. Pt unable to locate his mediport card. Able to find OR records from December 2012, however it does not specifically say if this is a power port. Will access with standard needle and if pt needs a CT he will need a peripheral IV start unless his medical port card can be found. Nursing updated.
[2023-05-11 16:58] VITALS: BP 190/64
--- NOTE | 2023-05-11 17:54 | NUR ---
DIRECT ADMIT: PT TO UNIT AT ABOUT 1450. PT IN ROOM WITH . A/O, NOTED HTN WITH VS. PT REPORTS A LITTLE ANXIOUS AT THIS TIME. HEAD TO TOE ASSESSMENT COMPLETED. REDNESS TO ABD OUTLINED. PT ORIENTED TO ROOM AND CALL LIGHT USE. X2 RESIDENTS AT BEDSIDE WELL. RECIEVED ORDER FOR MEDIPORT ACCESS.
[2023-05-11] MEDS ORDERED: VABYSMO6 MG/0.05 IO (18:19)
--- NOTE | 2023-05-11 19:23 | NUR ---
SUMMARY: NO ACUTE CHANGE SINCE ADMIT, REPORT PASSED TO NOC RN
[2023-05-11 20:58] VITALS: BP 189/62
[2023-05-11 21:08] VITALS: BP 188/65
[2023-05-11 21:10] VITALS: BP 129/75
[2023-05-12 02:16] VITALS: BP 131/68
--- NOTE | 2023-05-12 05:34 | NUR ---
SHIFT SUMMARY NO ACUTE CHANGES TO REPORT OVERNIGHT. PT HAS RESTED T/O THE SHIFT. REDNESS TO ABD R/T CELLULITIS OUTLINED. PT DENIES PAIN. IV ANTIBIOTICS PER ORDERS. PT HAS BEEN INDEPENDENT IN THE ROOM. VITALS STABLE. BED IN LOWEST POSITION, CALL LIGHT WITHIN REACH.
[2023-05-12 07:16] VITALS: BP 132/72
[2023-05-12 08:26] LABS: BASOPHILS ABSOLUTE AUTO 0.02 K/mm3 (0.00-0.23); BASOPHILS PERCENT AUTO 1 % (0-2); EOSINOPHILS ABSOLUTE AUTO 0.07 K/mm3 (0.00-0.68); EOSINOPHILS PERCENT AUTO 2 % (0-6); Hematocrit 30.1 % (37.0-53.0); Hemoglobin 9.8 g/dL (13.5-17.5); IMMATURE GRAN ABSOLUTE AUTO 0.03 K/mm3 (0.00-0.10); IMMATURE GRAN PERCENT AUTO 1 % (0-1); LYMPHOCYTES ABSOLUTE AUTO 0.72 K/mm3 (0.84-5.20); LYMPHOCYTES PERCENT AUTO 19 % (21-46); MONOCYTES ABSOLUTE AUTO 0.25 K/mm3 (0.16-1.47); MONOCYTES PERCENT AUTO 7 % (4-13); Mean Corpuscular HGB Conc 32.6 g/dL (31.5-36.5); Mean Corpuscular Volume 98 fL (80-100); Mean Platelet Volume 8.5 fL (9.1-12.4); NEUTROPHILS ABSOLUTE AUTO 2.69 K/mm3 (1.96-9.15); NEUTROPHILS PERCENT AUTO 71 % (41-73); Platelet Count 110 K/mm3 (150-400); RDW Coefficient Variation 12.6 % (11.7-14.2); RDW Standard Deviation 44.9 fL (35.1-46.3); Red Blood Cell Count 3.06 M/mm3 (4.30-5.90); White Blood Cell Count 3.78 K/mm3 (4.00-11.30)
[2023-05-12] MEDS ORDERED: HYDCHL25 PO (11:28)
[2023-05-12] MEDS ORDERED: LISI20 PO (11:29)
[2023-05-12] MEDS ORDERED: VISBIOME 112.51 EACH PO (11:31)
[2023-05-12] MEDS ORDERED: CEPH500 PO (11:31)
--- NOTE | 2023-05-12 12:30 | NUR ---
PT DISCHARGED AT 1210. ALL PAPERWORK REVIEWED AND EDUCTIONAL MATERIAL SENT WITH PT. NO DISTRESS NOTED AND PT TO FOLLOW UP WITH SURGEON SUNDAY. PERSONAL BELONINGS COLLECTED AND PT ESCORTED OUT VIA WHEEL CHAIR TO [facility].
== END 2023-05-12 12:13 | disposition home or self-care (01) ==
LOC: SURS 14:42
PROVIDERS: Family Medicine; Student in an Organized Health Care Education/Training Program; ADMIT Internal Medicine
DX: I16.0 Hypertensive urgency (principal); I10 Essential (primary) hypertension; N40.0 Benign prostatic hyperplasia without lower urinary tract symptoms; I25.10 Atherosclerotic heart disease of native coronary artery without angina pectoris; R10.11 Right upper quadrant pain; R10.31 Right lower quadrant pain
CPT/HCPCS: 36415; 76705; 80053; 83690; 85025; 96365; 96367; 96375; A9270; G0378; G0379; J0696; J1642

== ENCOUNTER → 2024-05-19 | Outpatient (CLI) | payer MEDICARE ==
[~2024-05-19] MED LIST changes: +CEPH500 PO; +HYDCHL25 PO; +LISI20 PO; +VABYSMO6 MG/0.05 IO; +VISBIOME 112.51 EACH PO
[2024-05-19 13:52] LABS: Creatinine Urine 61.8 mg/dL (27.00-270.00); Microalbumin, Urine Quant. 28.9 mg/L (0.000-20.000); Protein, Urine Quantitative 9.2 mg/dL (0.0-11.9)
== END | disposition home or self-care (01) ==
LOC: LAB 06:00 → LAB SHORT 06:00
PROVIDERS: Internal Medicine Nephrology
DX: N18.30 Chronic kidney disease, stage 3 unspecified (principal); N25.81 Secondary hyperparathyroidism of renal origin; E55.9 Vitamin D deficiency, unspecified; E78.00 Pure hypercholesterolemia, unspecified; R76.9 Abnormal immunological finding in serum, unspecified; R94.5 Abnormal results of liver function studies; D50.9 Iron deficiency anemia, unspecified; D52.8 Other folate deficiency anemias; G60.9 Hereditary and idiopathic neuropathy, unspecified
CPT/HCPCS: 81050; 82043; 82570; 84156

== ENCOUNTER 2025-05-28 13:27 | Emergency (ER) | payer MEDICARE ==
[~2025-05-28] VITALS: Ht 177.8 cm; Wt 68.0 kg
[2025-05-28 16:45] VITALS: BP 158/71
== END 2025-05-28 16:45 | disposition home or self-care (01) ==
LOC: ER 13:27
DX: S01.81XA Laceration without foreign body of other part of head, initial encounter (principal); H11.32 Conjunctival hemorrhage, left eye; Z88.8 Allergy status to other drugs, medicaments and biological substances; Z88.0 Allergy status to penicillin; Z79.899 Other long term (current) drug therapy; W18.30XA Fall on same level, unspecified, initial encounter
CPT/HCPCS: 12013; 70450; 99283-25